=== PATIENT | female | born 1980 | race Caucasian/White ===

== ENCOUNTER 2020-08-21 09:19 | Emergency (ER) | payer OTHER ==
[~2020-08-21] VITALS: Wt 77.1 kg
[~2020-08-21 09:19] MED LIST: MEDROL DOSEPAK4 MG PO; NAPROSYN500 MG PO; ROBAXIN500 M1 PO; ZANTAC 150150 MG PO; ZOFRAN4 MG PO
[2020-08-21 09:52] LABS: BASO % 0.3 % (0.0-1.0); HEMATOCRIT 37.3 % (37.0-47.0); LYMPH # 0.9 10*3/uL (1.3-4.4); LYMPH % 8.1 % (27.0-41.0); MEAN CELL VOLUME 86.5 fl (81.0-99.0); MEAN CORPUSCULAR HGB 28.1 pg (27.0-31.0); MEAN CORPUSCULAR HGB CONC 32.4 g/dl (33.0-37.0); MEAN PLATELET VOLUME 10.3 fl (9.6-12.3); MONO # 0.2 10*3/uL (0.1-1.0); MONO % 1.5 % (3.0-9.0); NEUT # 10.5 10*3/uL (2.3-7.9); NEUT % 89.8 % (47.0-73.0); PLATELET COUNT AUTOMATED 337 10*3/uL (130-400); RED BLOOD COUNT 4.31 10*6/uL (4.10-5.10); RED CELL DISTRI WIDTH 12.7 % (0-14.5); WHITE BLOOD COUNT 11.6 10*3/uL (4.8-10.8)
[2020-08-21 10:09] LABS: ALBUMIN 3.9 gm/dl (3.1-4.5); ALKALINE PHOSPHATASE 67 U/L (45-117); BUN 12 mg/dl (7-24); CHLORIDE 103 mmol/L (98-107); CREATININE 0.94 mg/dL (0.55-1.02); LIPASE 46 U/L (73-393); POTASSIUM 3.7 mmol/L (3.5-5.1); SGOT/AST 12 IU/L (3-35); SGPT/ALT 18 U/L (12-78); SODIUM 134 mmol/L (136-145); TOTAL PROTEIN 8.1 gm/dL (6.4-8.2)
[2020-08-21 10:10] LABS: ETHYL ALCOHOL < 3.0 mg/dl (<3)
[2020-08-21 10:22] LABS: BILIRUBIN Negative (Negative); BLOOD Trace-Intact (Negative); CLARITY Clear (Clear); COLOR Yellow (Yellow); GLUCOSE Negative (Negative); KETONE 4+ (Negative); LEUKO ESTERASE Trace (Negative); NITRITE Negative (Negative); PH 7.5 (4.5-8.0); SPECIFIC GRAVITY >= 1.030 (1.001-1.030)
[2020-08-21 10:29] LABS: URINE AMPHETAMINES < 1000 (1000ng/ml); URINE BARBITURATES < 200 (200ng/ml); URINE BENZODIAZEPINES > 200 (200ng/ml); URINE CANNABINOIDS (THC) > 50 (50ng/ml); URINE COCAINE < 300 (300ng/ml); URINE METHADONE < 300 (300ng/ml); URINE OPIATES < 300 (300ng/ml)
[2020-08-21 10:30] LABS: URINE PHENCYCLIDINE < 25 (25ng/ml)
[2020-08-21 10:41] LABS: BACTERIA 2+; MUCOUS 2+
[2020-08-21] MEDS ORDERED: PRILOSEC20 M1 PO (13:40)
[2020-08-21] MEDS ORDERED: REGLAN10 M1 PO (13:40)
[2020-08-22] MEDS ORDERED: ZOFRAN4 MG PO (22:08)
== END 2020-08-21 14:00 | disposition home or self-care (01) ==
LOC: ED 09:19
PROVIDERS: Emergency Medicine
DX: K29.00 Acute gastritis without bleeding (principal); E86.0 Dehydration; R11.2 Nausea with vomiting, unspecified

== ENCOUNTER 2020-08-22 20:11 | Emergency (ER) | payer OTHER ==
[~2020-08-22] VITALS: Ht 172.7 cm; Wt 72.6 kg
[~2020-08-22 20:11] MED LIST changes: +PRILOSEC20 M1 PO; +REGLAN10 M1 PO
[2020-08-22 21:17] LABS: BASO # 0.1 10*3/uL (0.0-0.1); BASO % 0.5 % (0.0-1.0); HEMATOCRIT 37.2 % (37.0-47.0); LYMPH # 1.5 10*3/uL (1.3-4.4); LYMPH % 14.5 % (27.0-41.0); MEAN CELL VOLUME 85.7 fl (81.0-99.0); MEAN CORPUSCULAR HGB 28.3 pg (27.0-31.0); MEAN CORPUSCULAR HGB CONC 33.1 g/dl (33.0-37.0); MEAN PLATELET VOLUME 10.4 fl (9.6-12.3); MONO # 0.5 10*3/uL (0.1-1.0); MONO % 4.4 % (3.0-9.0); NEUT # 8.4 10*3/uL (2.3-7.9); NEUT % 80.1 % (47.0-73.0); PLATELET COUNT AUTOMATED 376 10*3/uL (130-400); RED BLOOD COUNT 4.34 10*6/uL (4.10-5.10); RED CELL DISTRI WIDTH 12.4 % (0-14.5); WHITE BLOOD COUNT 10.4 10*3/uL (4.8-10.8)
[2020-08-22 21:34] LABS: ALBUMIN 3.7 gm/dl (3.1-4.5); ALKALINE PHOSPHATASE 61 U/L (45-117); BUN 13 mg/dl (7-24); CHLORIDE 103 mmol/L (98-107); CREATININE 0.96 mg/dL (0.55-1.02); LIPASE 73 U/L (73-393); POTASSIUM 3.1 mmol/L (3.5-5.1); SGOT/AST 8 IU/L (3-35); SGPT/ALT 19 U/L (12-78); SODIUM 133 mmol/L (136-145); TOTAL PROTEIN 7.5 gm/dL (6.4-8.2)
[2020-08-22] MEDS ORDERED: ZOFRAN4 MG PO (22:08)
== END 2020-08-22 22:13 | disposition home or self-care (01) ==
LOC: ED 20:11
PROVIDERS: Internal Medicine
DX: K29.70 Gastritis, unspecified, without bleeding (principal); E87.8 Other disorders of electrolyte and fluid balance, not elsewhere classified; Z79.899 Other long term (current) drug therapy

== ENCOUNTER 2020-08-26 11:34 | Emergency (ER) | payer OTHER ==
[~2020-08-26] VITALS: Ht 165.1 cm; Wt 72.6 kg
[2020-08-26 14:33] LABS: BASO % 0.5 % (0.0-1.0); EOS % 0.3 % (1.0-4.0); HEMATOCRIT 39.2 % (37.0-47.0); LYMPH % 23.4 % (27.0-41.0); MEAN CELL VOLUME 82.5 fl (81.0-99.0); MEAN CORPUSCULAR HGB CONC 33.9 g/dl (33.0-37.0); MEAN PLATELET VOLUME 10.2 fl (9.6-12.3); MONO # 0.8 10*3/uL (0.1-1.0); MONO % 8.8 % (3.0-9.0); NEUT # 5.8 10*3/uL (2.3-7.9); NEUT % 66.5 % (47.0-73.0); PLATELET COUNT AUTOMATED 381 10*3/uL (130-400); RED BLOOD COUNT 4.75 10*6/uL (4.10-5.10); WHITE BLOOD COUNT 8.7 10*3/uL (4.8-10.8)
[2020-08-26 14:37] LABS: BILIRUBIN Negative (Negative); BLOOD Negative (Negative); CLARITY Clear (Clear); COLOR Yellow (Yellow); GLUCOSE Negative (Negative); KETONE 1+ (Negative); LEUKO ESTERASE Negative (Negative); NITRITE Negative (Negative); SPECIFIC GRAVITY <= 1.005 (1.001-1.030); UROBILINOGEN 0.2 E.U./dl (0.0-1.0)
[2020-08-26 14:43] LABS: PH 8.5 (4.5-8.0)
[2020-08-26 14:52] LABS: BACTERIA 1+; EPITHELIAL CELLS 0-2
[2020-08-26 14:54] LABS: ALKALINE PHOSPHATASE 60 U/L (45-117); BUN 6 mg/dl (7-24); CHLORIDE 98 mmol/L (98-107); CREATININE 0.73 mg/dL (0.55-1.02); LIPASE 114 U/L (73-393); SGOT/AST 12 IU/L (3-35); SGPT/ALT 33 U/L (12-78); SODIUM 133 mmol/L (136-145); TOTAL PROTEIN 7.4 gm/dL (6.4-8.2)
== END 2020-08-26 17:32 | disposition home or self-care (01) ==
LOC: ED 11:34
PROVIDERS: Physician Assistant
DX: K29.70 Gastritis, unspecified, without bleeding (principal); Z79.899 Other long term (current) drug therapy

== ENCOUNTER 2021-04-24 17:27 | Emergency (ER) | payer OTHER ==
[~2021-04-24] VITALS: Ht 165.1 cm; Wt 79.4 kg
[2021-04-24 18:07] LABS: BASO # 0.1 10*3/uL (0.0-0.1); BASO % 1.2 % (0.0-1.0); EOS # 0.4 10*3/uL (0.0-0.4); HEMATOCRIT 36.4 % (37.0-47.0); LYMPH # 3.2 10*3/uL (1.3-4.4); LYMPH % 42.5 % (27.0-41.0); MEAN CELL VOLUME 82.5 fl (81.0-99.0); MEAN CORPUSCULAR HGB 27.4 pg (27.0-31.0); MEAN CORPUSCULAR HGB CONC 33.2 g/dl (33.0-37.0); MEAN PLATELET VOLUME 9.9 fl (9.6-12.3); MONO # 0.6 10*3/uL (0.1-1.0); MONO % 8.5 % (3.0-9.0); NEUT # 3.2 10*3/uL (2.3-7.9); NEUT % 42.7 % (47.0-73.0); PLATELET COUNT AUTOMATED 313 10*3/uL (130-400); RED BLOOD COUNT 4.41 10*6/uL (4.10-5.10); RED CELL DISTRI WIDTH 12.7 % (0-14.5); WHITE BLOOD COUNT 7.6 10*3/uL (4.8-10.8)
[2021-04-24] MEDS ORDERED: CLINDAMYCIN HC300 MG PO (18:10)
[2021-04-24] MEDS ORDERED: Motrin,Rufen800 MG PO (18:10)
[2021-04-24 18:24] LABS: ALBUMIN 3.7 gm/dl (3.1-4.5); ALKALINE PHOSPHATASE 51 U/L (45-117); BUN 16 mg/dl (7-24); CHLORIDE 108 mmol/L (98-107); CREATININE 0.85 mg/dL (0.55-1.02); POTASSIUM 3.9 mmol/L (3.5-5.1); SGOT/AST 15 IU/L (3-35); SGPT/ALT 18 U/L (12-78); SODIUM 139 mmol/L (136-145)
== END 2021-04-24 18:26 | disposition home or self-care (01) ==
LOC: ED 17:27
PROVIDERS: Nurse Practitioner Family
DX: K04.7 Periapical abscess without sinus (principal)

== ENCOUNTER 2022-01-10 16:14 | Emergency (ER) | payer OTHER ==
[~2022-01-10] VITALS: Ht 165.1 cm; Wt 79.4 kg
[~2022-01-10 16:14] MED LIST changes: +CLINDAMYCIN HC300 MG PO; +Motrin,Rufen800 MG PO
[2022-01-10] MEDS ORDERED: VIBRAMYCIN100 MG PO (17:07)
== END 2022-01-10 17:14 | disposition home or self-care (01) ==
LOC: ED 16:14
DX: S30.860A Insect bite (nonvenomous) of lower back and pelvis, initial encounter (principal); W57.XXXA Bitten or stung by nonvenomous insect and other nonvenomous arthropods, initial encounter; Y93.89 Activity, other specified; Y92.89 Other specified places as the place of occurrence of the external cause; Y99.8 Other external cause status